=== PATIENT | male | born 1990 | race Caucasian/White ===

== ENCOUNTER 2020-01-01 20:17 | Emergency (ER) | payer SELFPAY ==
[2020-01-01 20:18] VITALS: BP 150/90; PULSE 100; RESP 18; TEMP 36.7; O2SAT 99; BMI 26.6
--- NOTE | 2020-01-01 20:54 | RAD_ITS ---
HISTORY: Cough, sore throat. EXAM: XR Chest 1 View: COMPARISON: None FINDINGS: # of images incl. paperwork: 2 Lungs are clear. Heart is not enlarged. No acute osseous pathology perceived. Pulmonary vascularity is distinct. No effusions. RAD/Chest 1 View (Portable) IMPRESSION: Normal. at 2132 Reported and signed by: Fred Andino MD Electronically Signed: Fred Andino MD at 21:31 EDT Tel , Service support ,
[2020-01-01 22:07] LABS: Probe Check PASS; Specimen Processing Control PASS
[2020-01-01 22:23] VITALS: BP 118/81; PULSE 73; RESP 18; O2SAT 98
--- NOTE | 2020-01-01 22:34 | ED.DCSUM_ITS ---
- ER Visit Summary Date of Service: 01/01/20 Chief Complaint: Cough History of Present Illness: The patient is a 29 M presenting for cough for the past 1 to 2 days. Cough is nonproductive. He denies fever. He has mild shortness of breath associated with this. He has had diarrhea for the past 1 to 2 days. He denies nausea or vomiting. Denies abdominal pain. He also states he lost his sense of taste. He works at [employer] and states he has multiple coworkers who have tested positive for COVID. He denies myalgias. Denies other complaints. Physical Examination: Vitals are stable. Patient is afebrile. Alert no acute distress. Pulse ox 98% on room air HEENT exam is unremarkable. Pharynx is normal. Neck is supple. Lungs are clear and equal bilaterally. Heart is regular rate and rhythm. Abdomen is soft nontender nondistended. Extremities are unremarkable. Skin is warm and dry. No focal neurologic deficit. Remainder of exam is unremarkable. Emergency Department Course and Treatment: Chest x-ray shows no acute process. COVID is negative. Patient is advised to follow-up with employee health. Disposition: Discharge home Impression: URI This note was generated with [employer] dictation software. It may contain incorrect words, spelling, and punctuation that were not noted in review of the chart prior to signing ED Disposition - Plan for ED Patient: Disposition: Home or Assisted Living Instructions: ED Upper Resp Infec No Abx Tx Referrals: Care Physician,No Primary [Primary Care Provider] -
--- NOTE | 2020-01-01 22:36 | ED.DEP ---
ED Disposition - Plan for ED Patient: Instructions: ED Upper Resp Infec No Abx Tx Referrals: Care Physician,No Primary [Primary Care Provider] -
== END 2020-01-01 22:44 | disposition home or self-care (01) ==
LOC: ED 21:02
PROVIDERS: Emergency Provider Emergency Medicine
DX: J06.9 Acute upper respiratory infection, unspecified (principal); Z20.828 Contact with and (suspected) exposure to other viral communicable diseases
CPT/HCPCS: 71045; 87635; 99282; C9803; U0003